=== PATIENT | male | born 1930 | race Caucasian/White ===

== ENCOUNTER 2017-12-12 12:09 | Emergency (ER) | payer OTHER ==
[~2017-12-12] VITALS: Ht 160 cm; Wt 75.9 kg
[2017-12-12 12:14] VITALS: Ht 160 cm; Wt 75.9 kg
[2017-12-12 12:56] LABS: BASOPHIL % 0.4 % (0-2); PLATELET COUNT 175 x10^3mcL (130-400)
[2017-12-12 13:10] LABS: CALCIUM 8.5 mg/dL (8.5-10.1); CARBON DIOXIDE 26.9 mmol/L (21-32); CHLORIDE SERUM 100 mmol/L (98-107); CREATININE SERUM 1.1 mg/dL (0.7-1.3); GLUCOSE SERUM 267 mg/dL (74-106); POTASSIUM SERUM 3.7 mmol/L (3.5-5.1); SODIUM SERUM 137 mmol/L (136-145)
[2017-12-12 13:12] LABS: RED CELL DISTRIBUTION WIDTH 15.2 % (11.5-14.5)
[2017-12-12 13:21] LABS: ALBUMIN 3.5 g/dL (3.4-5.0); ALKALINE PHOSPHATASE 111 U/L (46-116); ALT/SGPT 36 U/L (16-63); AST/SGOT 40 U/L (15-37); BILIRUBIN TOTAL 0.7 mg/dL (0.20-1.00); HDL CHOLESTEROL 40 mg/dL (40-60); LIPASE 317 IU/L (73-393); T4(THYROXINE) 6.7 ug/dL (4.7-13.3)
[2017-12-12 13:24] LABS: AMYLASE 186 U/L (25-115); CHOLESTEROL 126 mg/dL (<200)
[2017-12-12 14:44] LABS: UA SPECIFIC GRAVITY >=1.030 (1.005-1.035); microscopic required? YES; urine erythrocyte 1+ (NEGATIVE)
[2017-12-12 14:57] VITALS: BP 138/78
== END 2017-12-12 14:57 | disposition home or self-care (01) ==
LOC: ED 12:09
PROVIDERS: Emergency Medicine
DX: M50.30 Other cervical disc degeneration, unspecified cervical region (principal); I10 Essential (primary) hypertension; E78.00 Pure hypercholesterolemia, unspecified; E11.65 Type 2 diabetes mellitus with hyperglycemia; F03.90 Unspecified dementia, unspecified severity, without behavioral disturbance, psychotic disturbance, mood disturbance, and anxiety; N40.0 Benign prostatic hyperplasia without lower urinary tract symptoms; Z95.0 Presence of cardiac pacemaker
CPT/HCPCS: 82962; 83880; J1100; J1815; J1885; J7030